=== PATIENT | male | born 1970 | race Caucasian/White ===

== ENCOUNTER → 2020-01-06 14:43 | Outpatient (CLI) | payer SELFPAY ==
[2020-01-06 14:55] LABS: Pathologist Comment May follow
[2020-01-06 16:15] LABS: Synovial Fld Mononuclear WBC % 8.8 %; Synovial Fld Polynuclear WBC # 21.325 10^3/uL; Synovial Fld Polynuclear WBC % 91.2 %
[2020-01-06 16:26] LABS: AUTO B FLUID DILUENT BKGD CT WBC <0.1 RBC <0.01 (W<.1,R<.01); Color / Synovial Fluid Yellow (Pale Yellow); Source- Body Fluid SYNOVIAL; Viscosity / Synovial Fluid Sl. Viscous (HIGH)
[2020-01-06 16:28] LABS: RBC /Synovial Fluid 0.002 10^6/uL (0)
[2020-01-06 16:36] LABS: Source / Synovial Fluid L KNEE
[2020-01-06 16:37] LABS: Appearance /Synovial Fluid Turbid (CLEAR)
[2020-01-06 17:17] LABS: Lymph 2 %; Neutrophil 98 % (0-25)
[2020-01-06 17:19] LABS: Body Fluid QC Type(s) BF4Q,BF5Q
[2020-01-07 12:31] LABS: Pathologist Review Reviewed
== END ==
PROVIDERS: Referring Provider Physician Assistant Surgical; Visit Provider Physician Assistant Surgical
DX: S80.02XA Contusion of left knee, initial encounter (principal)
CPT/HCPCS: 87070; 87075; 87205; 89050; 89051; 89060